=== PATIENT | female | born 1990 | race Caucasian/White ===

== ENCOUNTER 2025-09-22 16:57 | Emergency (ER) | payer MEDICAID ==
[~2025-09-22] VITALS: Ht 162.6 cm; Wt 164.7 kg
[2025-09-22 17:05] VITALS: BP 154/88; O2SAT 97
--- NOTE | 2025-09-22 18:14 | Physician Documentation ---
History of Present Illness ~ Chief Complaint: Cold, cough & congestion Stated Complaint: FLU SYMPTOMS Time Seen by MD: 18:25 HPI Very pleasant 35-year-old female that presents to the emergency department for re-evaluation of cough cold congestion x5 days. Patient reports that she was placed on antibiotics for bronchitis but she is still having persistent cough and congestion. Patient reports intermittent fevers and possible chills. Her symptoms reported at this time. Medication Reconciliation Allergies: Coded Allergies: doxycycline (Verified Allergy, Severe, DELRIUM, CONFUSION, 09/22/25) Scheduled Prednisone* (Prednisone*), 1 TAB PO DAILY Scheduled PRN Benzonatate* (Benzonatate*), 1-2 CAP PO Q8H PRN for cough Review of Systems All Other Systems at this time: Reviewed and Negative Respiratory: Reports: see HPI Physical Exam Vital Signs: RN Vital Signs have been reviewed: Yes, Temperature: 97.5, Source: Temporal, Heart Rate: 75, Respiratory Rate: 18, BP: 154/88, Pulse Oximetry: 97, Weight: 164.700 Oxygen Flow Rate: 0 General Appearance: alert, WD/WN, mild distress, obese Eyes: normal inspection Ears: auricle normal Nose: normal inspection Oropharynx: normal inspection Neck: non-tender Respiratory: lungs clear, normal breath sounds, no respiratory distress Chest: no accessory muscle use Cardiovascular: normal peripheral pulses Gastrointestinal: non-tender Rectal: deferred Extremities: normal range of motion Back: normal inspection Skin: normal color Neurologic: oriented x4 Psychiatric: normal mood/affect Lymphatic: no adenopathy Progress Results/Orders Results/Orders Orders - MOISES FELIPE PAC Covid19 Binax Poc Result Entry (09/22/25 18:40) Influenza Type A&B Rapid Test (09/22/25 18:53) Vital Signs 09/22/25 09/22/25 09/22/25 17:05 18:32 20:20 Temp 97.5 97.5 Pulse 75 80 Resp 18 18 B/P (MAP) 154/88 Pulse Ox 97 O2 Flow Rate 0 Laboratory Tests Test 09/22/25 18:10 09/22/25 19:17 White Blood Count 7.4 Red Blood Count 5.19 Hemoglobin 14.5 Hematocrit 43.5 Mean Corpuscular Volume 83.8 Mean Corpuscular Hemoglobin 28.0 Mean Corpuscular Hemoglobin Concent 33.4 Red Cell Distribution Width 14.8 H Platelet Count 287 Mean Platelet Volume 9.0 Neutrophils (%) (Auto) 64.0 Lymphocytes (%) (Auto) 26.9 Monocytes (%) (Auto) 6.1 Eosinophils (%) (Auto) 2.1 Basophils (%) (Auto) 0.9 Neutrophils # (Auto) 4.8 Lymphocytes # (Auto) 2.0 Monocytes # (Auto) 0.5 Eosinophils # (Auto) 0.2 Basophils # (Auto) 0.1 CBC Comment Sodium Level 140 Potassium Level 4.4 Chloride Level 105 Carbon Dioxide Level 28.9 Anion Gap 6 L Blood Urea Nitrogen 14 Creatinine 0.74 Estimated GFR/1.73 m2 90 BUN/Creatinine Ratio 18.9 Glucose Level 90 Lactic Acid Level 1.2 Calcium Level 9.4 Total Bilirubin 0.6 Aspartate Amino Transf (AST/SGOT) 22 Alanine Aminotransferase (ALT/SGPT) 29 Alkaline Phosphatase 105 Total Protein 8.4 H Albumin 3.8 Globulin 4.6 H Albumin/Globulin Ratio 0.8 L Procalcitonin < 0.05 Chemistry Comments SARS-CoV-2 Antigen (Rapid) Negative Medical Decision Making Additional information obtaine: old records Findings Labs and chest x-ray imaging reassuring for no acute infectious process. No pneumonia noted on x-ray. We will provide prednisone burst for patient avoid additional antibiotic therapy and provide cough suppressant. She is to follow up with the primary care provider for reassessment. Safely discharged in the emergency department. Differential Dx:Considerations: Include: Allergic rhinitis, Influenza, Otitis media, Pneumonia, Pnuemonitis, Sinusitis Departure Disposition: HOME / SELF CARE / HOMELESS Impression: Primary Impression: Acute respiratory infection Condition: Stable Discharge Instructions: Upper Respiratory Infection, Adult Additional Instructions: Please obtain and begin prescriptions as directed. Make follow up appointment with your primary care physician. Your chest x-ray and labs obtained tonight are reassuring. In the emergency department we will reach out to you if your influenza or COVID is positive. Thank you for visiting emergency department [facility]. Have a koko Najera. Referrals: NO PRIMARY CARE PROVIDER (PCP) Prescriptions Prednisone* (Prednisone*) 20 Mg Tablet 1 TAB PO DAILY for 5 Days, #5 TAB Prov: MOISES FELIPE PAC 09/22/25 Benzonatate* (Benzonatate*) 100 Mg Capsule 1-2 CAP PO Q8H PRN for cough, #30 CAP Prov: MOISES FELIPE PAC 09/22/25 Education Educated: Patient Educated regarding: diagnosis, treatment, prognosis Signature Scribe Signature: . Attestation: . [employer] Sep 22, 2025 18:14 MOISES FELIPE PAC Sep 22, 2025 20:09
--- NOTE | 2025-09-22 18:30 | RADIOLOGY REPORT ---
DI CHEST,TWO VIEWS INDICATION: Productive cough with associated pain during coughing. TECHNIQUE: Two views of the chest COMPARISON: None FINDINGS/IMPRESSION: LUNGS: No pleural effusion, consolidation, or pneumothorax. MEDIASTINUM: Unremarkable. BONES: No acute osseous abnormality. OTHER: None.
[2025-09-22 18:32] VITALS: RESP 18
[2025-09-22 18:40] LABS: MEAN PLATELET VOLUME 9.0 FL (7.4-10.4); RED CELL DISTRIBUTION WIDTH 14.8 % (11.5-14.5)
[2025-09-22 19:06] LABS: CREATININE 0.74 MG/DL (0.40-0.90); TOTAL CARBON DIOXIDE 28.9 MMOL/L (24-32); eCRCL 93 ML/MIN; eGFR 90 ML/MIN
[2025-09-22] MEDS ORDERED: PRED20TA PO (20:08)
[2025-09-22] MEDS ORDERED: BENZ-38 PO (20:08)
[2025-09-22 20:20] VITALS: PULSE 80; TEMP 97.5
== END 2025-09-22 20:21 | disposition home or self-care (01) ==
LOC: ER 16:58
DX: J22 Unspecified acute lower respiratory infection (principal); Z88.1 Allergy status to other antibiotic agents; Z79.899 Other long term (current) drug therapy; Z20.822 Contact with and (suspected) exposure to COVID-19
CPT/HCPCS: 36415; 71046; 80053; 83605; 84145; 85025; 87811; 99284